=== PATIENT | female | born 1955 | race Caucasian/White ===

== ENCOUNTER 2021-12-24 05:30 | Day surgery (SDC) | payer BC ==
[~2021-12-24] VITALS: Ht 188 cm; Wt 83.2 kg
[~2021-12-24 05:30] MED LIST: HYDROCODON-ACE1 EAC1 PO; LEVOTHYROXINE125 MCG PO; LOPERAMIDE2 MG PO; OMEPRAZOLE20 MG PO; PERCOCET 7.5-31 EACH PO; PROZAC20 MG PO; TESSALON PERLE100 MG PO
--- NOTE | 2021-12-24 08:13 | NUR ---
12/24/21 0813 Princess Mendoza 0808-PATIENT ARRIVED TO PACU ON 4L NC RR EVEN. PATIENT REACTIVE TO VERBAL STIMULI REMAINS VERY DROWSY SLIGHTLY OPENING EYES. NODS HEAD NO PAIN. ENCOURAGED TO PASS GAS. ABDOMEN SOFT. IVF INFUSING. PATIENT LAYING LEFT LATERAL. PATIENT EASILY DOZES BACK TO SLEEP. IVF INFUSING
--- NOTE | 2021-12-24 08:34 | NUR ---
PT IS ALERT, ORIENTED AND SEEMS PREPARED. PT HAS HAD PREVIOUS SCOPES, GAVE ENCOURAGEMENT, PT REQUESTED PRAYER. DAUGHTER WILL BE HERE AT DC
--- NOTE | 2021-12-24 09:09 | NUR ---
PT RETURNED FROM PACU TOO SLEEPY. AWOKE TALKING ANSWERS QUESTIONS TAKING SIPS WATER. AWAITING DAUGHTER GETTING OFF WORK TO GO HOME.
--- NOTE | 2021-12-24 09:32 | OR ---
[facility] [address], [place] [address] Signed DATE OF OPERATION: 12/24/2021 SURGEON: Chriss Leach MD PREOPERATIVE DIAGNOSES: 1. Hiatal hernia. 2. History of gastritis. 3. Esophageal dysphagia. 4. Intermittent melena. 5. Irritable bowel syndrome with diarrhea and constipation. 6. Diverticulosis. 7. Internal hemorrhoids. POSTOPERATIVE DIAGNOSES: 1. Hiatal hernia at 37-34 cm. 2. GE junction at 34 cm. 3. Mild diffuse gastritis. 4. 7 mm sessile polyp at 55 cm. 5. Minimal sigmoid diverticulosis. PROCEDURES: 1. EGD with CLOtest and biopsies of the antrum and GE junction. 2. Colonoscopy with hot biopsy. ESTIMATED BLOOD LOSS: None. INDICATIONS: Elizabeth is a 66-year-old female, asked to see me for followup upper and lower endoscopy. She had upper and lower endoscopy with Dr. Augustin around 2008. She was said to have a hiatal hernia with some gastritis and esophagitis. Apparently, her colon was unremarkable. Then in 2012, she underwent upper and lower endoscopy with Dr. Jacques. She had some irritation around the GE junction, which was negative for Cutler's esophagus. Of course, she had a hiatal hernia with some gastritis. She also had sigmoid diverticulosis and was said to have internal and external hemorrhoids. On this occasion, she told me she thought her esophageal dysphagia to solids was getting a little worse. She mentions intermittent melena as well. She has no family history of colon cancer or polyps. She is concerned that she is not completely evacuating her rectum. Her primary care provider asked to see me for upper and lower endoscopy. In the office, I gave her pamphlets on both subjects. She understands the nature of the Electronically Signed By: CHRISS LEACH MD 12/24/21 0932 PATIENT NAME: ELIZABETH SMALL OPERATIVE REPORT DATE OF : 59 REPORT #: [id number] PHYSICIAN: CHRISS LEACH MD PCP: YULY SHAIKH MD REPORT IS CONFIDENTIAL AND NOT TO BE RELEASED WITHOUT AUTHORIZATION [facility] [address], [place] [address] Signed two tests. We did review the risk including, but not limited to gas bloating, crampy abdominal pain, bleeding, perforation requiring surgery, and missed diagnosis. She had expressed understanding and wished to proceed. She has done well in the past with Versed and fentanyl. PROCEDURE NOTE: Elizabeth was taken into our endoscopy suite and placed in a supine semi-recumbent position. The posterior oropharynx was anesthetized with lidocaine spray. A bite block was utilized for the case. She was given a total of 7 mg of Versed and 150 mcg of fentanyl to cover the upper and lower endoscopy. The adult gastroscope had been introduced and advanced out the third portion of the duodenum without difficulty. The duodenum and pyloric channel were unremarkable. Her stomach showed a mild diffuse gastritis. We went ahead and took biopsies for pathologic review as well as CLOtest out of her antrum. She has some small proximal gastric polyps consistent with using her proton pump inhibitor as she did before. Upon retroflexion of the scope, we can see her small to moderate sized hiatal hernia. It measured out about 37 back to 34 cm. She had some irritation around the Z-line. We went ahead and took a couple biopsies along the edge of the Z-line. We did not specifically see any Cutler's esophagus. Her distal, middle and upper esophagus were unremarkable. After this, the gas was suctioned out and the gastroscope removed. Elizabeth tolerated the upper endoscopy quite well. Elizabeth was then rotated into the left lateral decubitus position. She was maintained on IV sedation with Versed and fentanyl. A digital rectal exam was performed. She has good sphincter tone. I did not appreciate any external hemorrhoids. The adult colonoscope had been introduced and advanced all around into the cecum under direct visualization of the camera. It took a little extra sedation and abdominal compression in order to advance the scope directly into the cecum itself. Her prep was quite excellent. We could easily see the appendiceal orifice and ileocecal valve. The scope was then slowly withdrawn. We took pictures throughout for photodocumentation. We encountered a 7 mm sessile polyp around 55 cm. It was easily removed with a hot biopsy forceps. She does have diverticula in the sigmoid colon. They were small to moderate in size, few in number, and scattered about. The rectum was unremarkable. Upon retroflexion of the scope, I could not appreciate any obvious pathology around the anal canal. After this, the gas was suctioned out and the colonoscope removed. Elizabeth tolerated the procedures quite well. RECOMMENDATIONS: I will see Elizabeth back in my office in 7 to 14 days to review her results. Electronically Signed By: CHRISS LEACH MD 12/24/21 0932 PATIENT NAME: ELIZABETH SMALL OPERATIVE REPORT DATE OF : 59 REPORT #: [id number] PHYSICIAN: CHRISS LEACH MD PCP: YULY SHAIKH MD REPORT IS CONFIDENTIAL AND NOT TO BE RELEASED WITHOUT AUTHORIZATION [facility] [address] [place] [address] Signed Chriss Leach MD ALB/MODL /[id number] cc: MD Chriss Siddiqui MD Copies: YULY SHAIKH MD, ANDREW L MD ~ Electronically Signed By: CHRISS LAECH MD 12/24/21 0932 PATIENT NAME: ELIZABETH SMALL OPERATIVE REPORT DATE OF : 59 REPORT #: [id number] PHYSICIAN: CHRISS LEACH MD PCP: YULY SHAIKH MD REPORT IS CONFIDENTIAL AND NOT TO BE RELEASED WITHOUT AUTHORIZATION
--- NOTE | 2021-12-24 09:47 | NUR ---
PT HAS BEEN SITTING UP DRINKING REVIEWING PAMPHLETS GIVEN. ASKING QUESTIONS. FULLY AWAKE. GETTING DRESSED. AWAITING FOR DAUGHTER.
--- NOTE | 2021-12-25 14:57 | PATH ---
[facility] [address] [place], [place] [address] Signed SPECIMEN(S): A ANTRUM BIOPSY SPECIMEN(S): B GE JUNCTION BIOPSY SPECIMEN(S): C POLYP AT 55 CM SPECIMEN SOURCE: A. ANTRUM BIOPSY B. GE JUNCTION BIOPSY C. POLYP AT 55 CM CLINICAL HISTORY: Black stool, IBS, reflux, dysphagia. Post: Gastritis, hiatal hernia, diverticulosis. FINAL PATHOLOGIC DIAGNOSIS: A. Antrum biopsy: - Benign antral-type mucosa with focal slight chronic inflammation. - Negative for evidence of Helicobacter organisms on routine HE-stained sections. B. GE junction biopsy: - Gastroesophageal junction with reactive features and mild chronic inflammation. - Negative for specialized intestinal metaplasia or dysplasia. C. Polyp at 55 cm: - Tubular adenoma (two fragments). JVR:caw:C2NR MICROSCOPIC EXAMINATION: Histologic sections of all submitted blocks are examined by light microscopy. These findings, together with the gross examination, support the pathologic diagnosis. GROSS DESCRIPTION: Three specimens are received in three containers, labeled "NB." A. The specimen, labeled "NB, antrum," is received in formalin and consists of one ibarra soft tissue fragment that measures 0.5 cm in greatest dimension. The specimen is entirely submitted in cassette (A1). B. The specimen, labeled "NB, GE junction," is received in formalin and consists of two ibarra soft tissue fragments that measure 0.3 cm in greatest dimension. The specimen is entirely submitted in cassette (B1). PATIENT NAME: SAKINA SMALL PATHOLOGY DATE OF : 59 REPORT #: [id number] PHYSICIAN: DAVINA CARMONA PCP: YULY SHAIKH MD REPORT IS CONFIDENTIAL AND NOT TO BE RELEASED WITHOUT AUTHORIZATION [facility] [address] [place], [place] [address] Signed C. The specimen, labeled "NB, polyp at 55 cm," is received in formalin and consists of three ibarra soft tissue fragments that measure 0.1-0.3 cm in greatest dimension. The specimen is entirely submitted in cassette (C1). AT (under the direct supervision of a pathologist) The Gross Description was prepared using a voice recognition system. The report was reviewed for accuracy; however, sound-alike word errors, addition and/or deletions may occur. If there is any question about this report, please contact Client Services. PERFORMING LABORATORY: The technical component was performed by [facility], [address] [place] [address] (CLIA# [id number]). Professional interpretation was performed by [facility] - [facility][1], [address] [place] [id number] (CLIA#: [id number]). Diagnostician: Alex Garcia MD Pathologist Electronically Signed 12/25/2021 Copies: ~ PATIENT NAME: SAKINA SMALL PATHOLOGY DATE OF : 59 REPORT #: [id number] PHYSICIAN: DAVINA CARMONA PCP: YULY SHAIKH MD REPORT IS CONFIDENTIAL AND NOT TO BE RELEASED WITHOUT AUTHORIZATION
== END 2021-12-24 09:45 | disposition home or self-care (01) ==
LOC: OPS 05:30 → DS 05:30 → OPS 07:30
PROVIDERS: ATTEND Colon & Rectal Surgery
PROC: 0DB68ZX Excision of Stomach, Via Natural or Artificial Opening Endoscopic, Diagnostic (ICD-10-PCS; principal; 2021-12-24 07:30)
PROC: 0DBE8ZX Excision of Large Intestine, Via Natural or Artificial Opening Endoscopic, Diagnostic (ICD-10-PCS; 2021-12-24 07:30)
DX: K29.51 Unspecified chronic gastritis with bleeding (principal); K21.01 Gastro-esophageal reflux disease with esophagitis, with bleeding; D12.6 Benign neoplasm of colon, unspecified; K58.2 Mixed irritable bowel syndrome; K44.9 Diaphragmatic hernia without obstruction or gangrene; K57.30 Diverticulosis of large intestine without perforation or abscess without bleeding; E03.9 Hypothyroidism, unspecified; E78.5 Hyperlipidemia, unspecified; E55.9 Vitamin D deficiency, unspecified; K64.0 First degree hemorrhoids
CPT/HCPCS: 36415; 87077; 99153; G0500; J2250; J3010; J7121